=== PATIENT | male | born 1990 | race Two or more races ===

== ENCOUNTER 2017-11-05 21:29 | Emergency (ER) | payer OTHER ==
[~2017-11-05] VITALS: Ht 180.3 cm; Wt 68.0 kg
[~2017-11-05 21:29] MED LIST: SERT50TA PO
--- NOTE | 2017-11-05 21:42 | NUR ---
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 PT AOX3 RR EVEN AND UNLABORED. NO SOB NOTED. NAD NOTED. NO NVD AT THIS TIME. PT PLACED ON MONITOR WAITING FOR EVMARYANA. PER RA PLACED IV ON LEFT FA 20G, INTACT AND PATENT. NO S/S INFECTION OR INFILTRATION.
--- NOTE | 2017-11-05 21:47 | NUR ---
ELKE LOCK AT BEDSIDE FOR EVAL.
[2017-11-05] MEDS ORDERED: LORAZEPAM 1 MG TABLET PO ONE (22:00)
[2017-11-05] MEDS ORDERED: LORAZEPAM 1 MG TABLET ONE (22:05)
--- NOTE | 2017-11-05 22:09 | NUR ---
PT MEDICATED ORDERED. CALLED LAB FOR BLOOD DRAW.
--- NOTE | 2017-11-05 22:28 | NUR ---
RADIOLOGY AT BEDSIDE FOR XR
[2017-11-05 22:34] LABS: BASOPHILS % (AUTO) 0.2 % (0.0-2.0); EOSINOPHILS % (AUTO) 0.4 % (0.0-6.0); HEMATOCRIT 45 % (39-51); HEMOGLOBIN 15.4 g/dL (13.5-17.5); LYMPHOCYTES # (AUTO) 1.3 /CMM (0.8-4.8); LYMPHOCYTES % (AUTO) 21.4 % (20.0-44.0); MEAN CORPUSCULAR HEMOGLOBIN 33 PG (26.0-33.0); MEAN CORPUSCULAR HGB CONC 34 g/dl (31.0-36.0); MEAN CORPUSCULAR VOLUME 95 fL (80-96); MONOCYTES # (AUTO) 0.5 /CMM (0.1-1.30); MONOCYTES % (AUTO) 8.3 % (2.0-12.0); NEUTROPHILS # (AUTO) 4.1 /CMM (1.8-8.9); NEUTROPHILS % (AUTO) 69.7 % (43.0-81.0); PLATELET COUNT (AUTO) 211 /CMM (150-450); RDW COEFFICIENT OF VARIATION 12.4 (11.5-15.0); RED BLOOD CELL COUNT(AUTO) 4.74 MIL/uL (4.5-6.0); WHITE BLOOD COUNT (AUTO) 5.9 K/uL (4.3-11.0)
--- NOTE | 2017-11-05 22:37 | NUR ---
URINE COLLECTED. SENT TO LAB
[2017-11-05 22:44] LABS: CALCIUM, SERUM 9.1 mg/dL (8.5-10.1); CREATININE 0.8 mg/dL (0.6-1.3); POTASSIUM 3.5 mmol/L (3.5-5.1)
[2017-11-05 22:46] LABS: INR 1.1 (0.87-1.13)
--- NOTE | 2017-11-05 22:52 | NUR ---
PT NOTED ANXIOUS, HR 129, ELKE LOCK MADE AWARE.
--- NOTE | 2017-11-05 22:53 | NUR ---
ELKE AT [facility] AT BEDSIDE SPEAKING TO PT.
[2017-11-05] MEDS ORDERED: diphenhydrAMINE HCL 25 MG CAPSULE PO ONE (23:30)
[2017-11-05] MEDS ORDERED: diphenhydrAMINE HCL 50 MG CAPSULE ONE (23:30)
--- NOTE | 2017-11-05 23:34 | NUR ---
IV removed. Catheter intact and site benign. Pressure and 4x4 applied to site. No bleeding noted. Patient discharged to home in stable condition. Written and verbal after care instructions given. Patient verbalizes understanding of instruction. ambulatory with a steady gait. instructed pt not to drive. pt verbalize understanding. accompanied with boyfriend.
[2017-11-05 23:35] VITALS: BP 138/68
== END 2017-11-05 23:36 | disposition home or self-care (01) ==
LOC: ER 21:32
DX: R00.0 Tachycardia, unspecified (principal); R42 Dizziness and giddiness; I10 Essential (primary) hypertension; F41.9 Anxiety disorder, unspecified
CPT/HCPCS: 36415; 71045; 80048; 80305; 85025; 85730; 99285; A4606; Q0163; Z7610